=== PATIENT | male | born 1960 ===

== ENCOUNTER 2024-06-21 21:38 | Outpatient (REF) | payer OTHER, SELFPAY ==
[2024-06-24 10:07] LABS: Hepatitis B Surface Ag Negative (Negative)
[2024-06-24 10:46] LABS: HIV-1/2 Ag & Ab Screen Negative (Negative)
[2024-06-24 11:18] LABS: Hepatitis C Ab w Rflx HCV PCR Negative (Negative)
== END 2024-06-21 21:39 | disposition home or self-care (01) ==
LOC: LBN 21:38
PROVIDERS: Visit Provider Family Medicine
DX: Z20.828 Contact with and (suspected) exposure to other viral communicable diseases (principal)
CPT/HCPCS: 86803; 87340; 87389

== ENCOUNTER 2024-08-21 10:01 | Outpatient (REF) | payer OTHER, SELFPAY ==
[2024-08-22 10:17] LABS: Hepatitis B Surface Ag Negative (Negative)
[2024-08-22 10:50] LABS: HIV-1/2 Ag & Ab Screen Negative (Negative)
[2024-08-22 10:53] LABS: Hepatitis C Ab w Rflx HCV PCR Negative (Negative)
== END 2024-08-21 10:02 | disposition home or self-care (01) ==
LOC: LBN 10:01
PROVIDERS: Visit Provider Physician Assistant Medical
DX: S61.031A Puncture wound without foreign body of right thumb without damage to nail, initial encounter (principal)
CPT/HCPCS: 86803; 87340; 87389